=== PATIENT | male | born 2000 | race Hispanic/Latino ===

== ENCOUNTER 2021-05-15 10:25 | Emergency (ER) | payer OTHER ==
[~2021-05-15] VITALS: Ht 165.1 cm; Wt 68.0 kg
[2021-05-15] MEDS ORDERED: MOTRIN400 MG/TAB PO ×4 (11:02→12:16)
[2021-05-15 12:27] VITALS: BP 118/62
== END 2021-05-15 12:28 | disposition home or self-care (01) | DRG 556 ==
LOC: ED 10:25
DX: M25.571 Pain in right ankle and joints of right foot (principal); W11.XXXA Fall on and from ladder, initial encounter; Y93.89 Activity, other specified; Y92.74 Orchard as the place of occurrence of the external cause; Y99.0 Civilian activity done for income or pay